=== PATIENT | male | born 1980 | race Caucasian/White ===

== ENCOUNTER 2017-06-17 16:00 | Emergency (ER) | payer BC ==
[~2017-06-17] VITALS: Ht 172.7 cm; Wt 95.0 kg
[2017-06-17 17:04] LABS: EOSINOPHIL (%) 2.3 % (0-5); EOSINOPHIL COUNT 0.1 K/uL (0-0.3); HEMATOCRIT 47.5 % (38.0-50.0); IMMATURE GRANULOCYTE (%) 0.3 % (0.0-0.7); INSTRUMENT ABS NEUTROPHIL CT 3.8 K/uL; LYMPHOCYTE COUNT 1.6 K/uL (1.0-2.8); MCH 28.6 PG (29.0-34.0); MCHC 33.3 G/DL (30.0-36.0); MCV 85.9 FL (86-99); MEAN PLAT.VOLUME 9.7 uM^3 (9.0-12.4); MONOCYTE (%) 7.7 % (3-12); MONOCYTE COUNT 0.5 K/uL (0-0.8); NEUTROPHIL (%) 63.4 % (45-76); NEUTROPHIL COUNT 3.8 K/uL (1.8-6.4); PLATELET COUNT 199 K/uL (156-360); RBC DIS.WIDTH-CV 12.4 % (11.8-14.6); RED BLOOD COUNT 5.53 M/uL (4.00-5.50)
[2017-06-17 17:18] LABS: CHLORIDE 108 mEq/L (99-109); POTASSIUM 4.1 mEq/L (3.7-5.4); SODIUM 141 mEq/L (136-147)
[2017-06-17 17:20] LABS: GLUCOSE 100 mg/dL (70-99)
[2017-06-17 17:21] LABS: ANION GAP 10 MEQ/L (2-14)
[2017-06-17 17:22] LABS: TOTAL BILIRUBIN 0.3 mg/dL (0.0-1.0)
[2017-06-17 17:23] LABS: ALKALINE PHOSPHATASE 52 IU/L (3-129)
[2017-06-17 17:24] LABS: GFR ESTIMATE (CALCULATED) > 59 mL/min/
[2017-06-17 17:25] LABS: UREA NITROGEN (BUN) 13 mg/dL (9-23)
[2017-06-17 17:27] LABS: LIPASE 33 U/L (1.0-51.0)
[2017-06-17 17:52] LABS: ADD MIUA? NO; BILIRUBIN NEGATIVE; BLOOD NEGATIVE; COLOR COLORLESS ((YELLOW)); GLUCOSE (STRIP) NEGATIVE; KETONES NEGATIVE; LEUKOCYTES NEGATIVE; NITRITE NEGATIVE; PROTEIN (STRIP) NEGATIVE; SPECIFIC GRAVITY 1.004 (1.000-1.030); UCUL ADDED? NO; UROBILINOGEN 0.2 MG/DL (0.2-1.0)
[2017-06-17 19:43] VITALS: BP 129/76
== END 2017-06-17 19:44 | disposition home or self-care (01) ==
LOC: EME 16:00
PROVIDERS: Physician Assistant
DX: R10.9 Unspecified abdominal pain (principal); Z87.891 Personal history of nicotine dependence
CPT/HCPCS: 74177; 80053; 81003; 83690; 85025; 93005; 99281; 99285; J7030; S0028

== ENCOUNTER 2017-06-27 23:01 | Emergency (ER) | payer BC ==
[~2017-06-27] VITALS: Ht 172.7 cm; Wt 94.1 kg
[2017-06-28 00:06] LABS: CHLORIDE 106 mEq/L (99-109); POTASSIUM 4.1 mEq/L (3.7-5.4); SODIUM 138 mEq/L (136-147)
[2017-06-28 00:07] LABS: GLUCOSE 108 mg/dL (70-99)
[2017-06-28 00:09] LABS: ANION GAP 10 MEQ/L (2-14)
[2017-06-28 00:11] LABS: GFR ESTIMATE (CALCULATED) > 59 mL/min/
[2017-06-28 00:12] LABS: UREA NITROGEN (BUN) 13 mg/dL (9-23)
[2017-06-28] MEDS ORDERED: ZOFRAN4 MG PO (01:07)
[2017-06-28 01:14] VITALS: BP 137/100
== END 2017-06-28 01:15 | disposition home or self-care (01) ==
LOC: EME 23:01
PROVIDERS: Emergency Medicine
DX: K52.9 Noninfective gastroenteritis and colitis, unspecified (principal); Z87.891 Personal history of nicotine dependence
CPT/HCPCS: 74020; 80048; 99281; 99283

== ENCOUNTER 2017-07-11 17:35 | Emergency (ER) | payer BC ==
[~2017-07-11] VITALS: Ht 172.7 cm; Wt 91.2 kg
[~2017-07-11 17:35] MED LIST: ZOFRAN4 MG PO
[2017-07-11 18:43] LABS: EOSINOPHIL (%) 1.5 % (0-5); EOSINOPHIL COUNT 0.1 K/uL (0-0.3); HEMATOCRIT 46.6 % (38.0-50.0); IMMATURE GRANULOCYTE (%) 0.2 % (0.0-0.7); INSTRUMENT ABS NEUTROPHIL CT 4.1 K/uL; LYMPHOCYTE COUNT 1.7 K/uL (1.0-2.8); MCH 28.4 PG (29.0-34.0); MCHC 33.5 G/DL (30.0-36.0); MCV 84.9 FL (86-99); MEAN PLAT.VOLUME 9.3 uM^3 (9.0-12.4); MONOCYTE (%) 9.6 % (3-12); MONOCYTE COUNT 0.6 K/uL (0-0.8); NEUTROPHIL (%) 62.8 % (45-76); NEUTROPHIL COUNT 4.1 K/uL (1.8-6.4); PLATELET COUNT 181 K/uL (156-360); RBC DIS.WIDTH-CV 12.2 % (11.8-14.6); RBC DIS.WIDTH-SD 37.3 % (39-53); RED BLOOD COUNT 5.49 M/uL (4.00-5.50); WHITE BLOOD COUNT 6.5 K/uL (4.1-10.2)
[2017-07-11 18:50] LABS: CHLORIDE 105 mEq/L (99-109); POTASSIUM 3.9 mEq/L (3.7-5.4); SODIUM 139 mEq/L (136-147)
[2017-07-11 18:51] LABS: GLUCOSE 96 mg/dL (70-99)
[2017-07-11 18:52] LABS: ANION GAP 11 MEQ/L (2-14)
[2017-07-11 18:53] LABS: TOTAL BILIRUBIN 0.5 mg/dL (0.0-1.0)
[2017-07-11 18:54] LABS: ALKALINE PHOSPHATASE 52 IU/L (3-129)
[2017-07-11 18:55] LABS: GFR ESTIMATE (CALCULATED) > 59 mL/min/
[2017-07-11 18:56] LABS: UREA NITROGEN (BUN) 14 mg/dL (9-23)
[2017-07-11 18:57] LABS: DIRECT BILIRUBIN 0.2 mg/dL (0.0-0.3)
[2017-07-11 19:05] LABS: LIPASE 25 U/L (1.0-51.0)
[2017-07-11 20:30] LABS: ADD MIUA? NO; BILIRUBIN NEGATIVE; BLOOD NEGATIVE; COLOR STRAW ((YELLOW)); GLUCOSE (STRIP) NEGATIVE; KETONES 5; LEUKOCYTES NEGATIVE; NITRITE NEGATIVE; PROTEIN (STRIP) NEGATIVE; SPECIFIC GRAVITY 1.011 (1.000-1.030); UROBILINOGEN 0.2 MG/DL (0.2-1.0)
[2017-07-11 20:44] LABS: AMPHETAMINE NEGATIVE (500 ng/mL); BARBITURATES NEGATIVE (200 ng/mL); BENZODIAZEPINES NEGATIVE (150 ng/mL); COCAINE NEGATIVE (150 ng/mL); INTERNAL CONTROLS VALID? YES; METHADONE NEGATIVE (200 ng/mL); METHAMPHETAMINE NEGATIVE (500 ng/mL); OPIATES (MORPHINE) NEGATIVE (100 ng/mL); OXYCODONE NEGATIVE (100 ng/mL); PHENCYCLIDINE NEGATIVE (25 ng/mL); PROPOXYPHENE NEGATIVE (300 ng/mL); THC CANNABINOIDS NEGATIVE (50 ng/mL); TRICYCLIC ANTIDEPRESSANTS NEGATIVE (300 ng/mL)
[2017-07-11] MEDS ORDERED: ZOFRAN ODT4 MG PO (21:16)
[2017-07-11] MEDS ORDERED: BENTYL20 MG PO (21:16)
[2017-07-11 21:38] VITALS: BP 128/80
[2017-07-12 10:00] LABS: LYME DISEASE SEROLOGY SCREEN NEGATIVE (NEGATIVE)
[2017-07-12 10:34] LABS: HBSG INDEX 0.17
[2017-07-12 10:36] LABS: ANTI-HEPATITIS A VIRUS (IGM) Nonreactive; HAV INDEX 0.11
[2017-07-12 10:37] LABS: ANTI-HEPATITIS B CORE (IGM) Nonreactive; HBC IgM INDEX 0.06
[2017-07-13 09:28] LABS: POC NON-PRINT COM 1 ND
== END 2017-07-11 21:42 | disposition home or self-care (01) ==
LOC: EME 17:35
PROVIDERS: Physician Assistant
DX: R10.84 Generalized abdominal pain (principal); R14.0 Abdominal distension (gaseous); R11.2 Nausea with vomiting, unspecified; R19.7 Diarrhea, unspecified; R53.83 Other fatigue; Z87.891 Personal history of nicotine dependence
CPT/HCPCS: 74022; 76705; 80053; 80074; 81003; 82248; 82272; 83605; 83690; 84439; 84443; 85025; 86618; 99281; 99285; J7030